=== PATIENT | male | born 1995 | race Caucasian/White ===

== ENCOUNTER 2022-05-28 22:48 | Emergency (ER) | payer OTHER ==
[2022-05-28 23:02] VITALS: PULSE 73; RESP 18; TEMP 97.9
[2022-05-28] MEDS ORDERED: DIPH,PERTUS(ACELL)TETVAC-LF 0.5 ML VIAL IM ONE (23:28)
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
--- NOTE | 2022-05-29 01:18 | XR ---
EXAMINATION TYPE: XR pelvis AP view DATE OF EXAM: 05/29/2022 COMPARISON: NONE HISTORY: Pain TECHNIQUE: Single view FINDINGS: Pelvic ring is intact. Proximal femurs and hip joints appear normal. Sacroiliac joints appe ar normal. IMPRESSION: Normal pelvis.
[2022-05-29 01:42] VITALS: BP 128/88
== END 2022-05-29 01:42 | disposition home or self-care (01) ==
LOC: EC 22:48
DX: S60.512A Abrasion of left hand, initial encounter (principal); T14.8XXA Other injury of unspecified body region, initial encounter; Z23 Encounter for immunization; V68.5XXA Driver of heavy transport vehicle injured in noncollision transport accident in traffic accident, initial encounter; Y92.410 Unspecified street and highway as the place of occurrence of the external cause
CPT/HCPCS: 70450; 71045; 72125; 72170; 90471; 90715; 99284

== ENCOUNTER 2023-07-26 05:48 | Observation (INO) | payer OTHER ==
[2023-07-26] MEDS ORDERED: SODIUM CHLORIDE 0.9% 1,000 ML IV STA (06:16)
[2023-07-26] MEDS ORDERED: KETOROLAC 15 MG/ML 1 ML VIAL IVP STA (06:16)
[2023-07-26] MEDS ORDERED: ONDANSETRON 4 MG/2 ML VIAL IVP STA ×2 (06:16→07:44)
--- NOTE | 2023-07-26 06:26 | ED ---
Abdominal Pain HPI - General Chief Complaint: Abdominal Pain Stated Complaint: Abdominal Pain, Nausea Time Seen by Provider: 07/26/23 06:13 Source: patient, RN notes reviewed Mode of arrival: ambulatory Limitations: no limitations - History of Present Illness Initial Comments: Patient is a 27-year-old male presenting to the ER with chief complaint of abd ominal pain. Patient states this started around 3 AM with generalized midline abdominal pain. Patient states he had one episode of vomiting but denies hematemesis. Patient describes the pain as a 10/10 sharp stabbing constant pain with associated nausea. He denies any abdominal surgeries. Patient denies any diarrhea or constipation, melena, shortness of breath, chest pain/palpitations. - Related Data Allergies Allergy/AdvReac Type Severity Reaction Status Date / Time No Known Allergies Allergy Verified 07/26/23 05:54 Review of Systems ROS Statement: Those systems with pertinent positive or pertinent negative responses have been documented in the HPI. ROS Other: All systems not noted in ROS Statement are negative. Past Medical History Past Medical History: No Reported History History of Any Multi-Drug Resistant Organisms: None Reported Past Surgical History: Orthopedic Surgery Past Psychological History: No Psychological Hx Reported Smoking Status: Never smoker Past Alcohol Use History: Occasional Past Drug Use History: None Reported General Exam Limitations: no limitations General appearance: alert, in no apparent distress, anxious Respiratory exam: Present: normal lung sounds bilaterally. Absent: respiratory distress, wheezes, rales, rhonchi, stridor Cardiovascular Exam: Present: regular rate, normal rhythm, normal heart sounds. Absent: systolic murmur, diastolic murmur, rubs, gallop, clicks GI/Abdominal exam: Present: soft, tenderness (generalized ), normal bowel sounds Neurological exam: Present: alert, oriented X3, CN II-XII intact Course Vital Signs 07/26/23 07/26/23 07/26/23 05:51 06:13 07:22 Temperature 98.2 F 98.1 F Pulse Rate 64 65 61 Respiratory 18 20 18 Rate Blood Pressure 122/79 132/86 124/79 O2 Sat by Pulse 100 100 99 Oximetry 07/26/23 09:26 Temperature 98 F Pulse Rate 64 Respiratory 16 Rate Blood Pressure 141/82 O2 Sat by Pulse 98 Oximetry Medical Decision Making - Medical Decision Making Was pt. sent in by a medical professional or institution (, PA, [employer]ER, urgent care, hospital, or senior care...) When possible be specific @ -No Did you speak to anyone other than the patient for history (EMS, parent, family, police, friend...)? What history was obtained from this source @ -No Did you review nursing and triage notes (agree or disagree)? Why? @ -I reviewed and agree with nursing and triage notes Were old charts reviewed (outside hosp., previous admission, EMS record, old EKG, old radiological studies, urgent care reports/EKG's, senior care records)? Report findings @ -No old charts were reviewed Differential Diagnosis (chest pain, altered mental status, abdominal pain women, abdominal pain men, vaginal bleeding, weakness, fever, dyspnea, syncope, h eadache, dizziness, GI bleed, back pain, seizure, CVA, palpatations, mental health, musculoskeletal)? @ -Differential Abdominal Pain Men: Appendicitis, cholecystitis, diverticulosis, ischemic bowel, pancreatitis, hepatitis, UTI, gastroenteritis, AAA, incarcerated hernia, bowel obstruction, constipation, inflammatory bowel, hepatitis, peptic ulcer disease, splenic infarction, perforated viscus, testicular torsion, this is not meant to be an all-inclusive EKG interpreted by me (3pts min.). @ -None X-rays interpreted by me (1pt min.). @ -None done CT interpreted by me (1pt min.). @ -CT abdomen and pelvis significant for early inflammation involving the appendix. Early acute appendicitis with trace pelvic free fluid. There is also an incidental 4.9 cm right pericardiac cyst U/S interpreted by me (1pt. min.). @ -None done What testing was considered but not performed or refused? (CT, X-rays, U/S, l abs)? Why? @ -None What meds were considered but not given or refused? Why? @ -None Did you discuss the management of the patient with other professionals (professionals i.e. , AICHA, [employer]ER, lab, RT, psych nurse, social psychologist, blueprint blocker, teacher, food safety officer, rn case mgr)? Give summary @ -[Yes, this case was discussed with Dr. Helton. He advised antibiotics, nothing by mouth, IV fluids and admission. Was smoking cessation discussed for >3mins.? @ -No Was critical care preformed (if so, how long)? @ -No Were there social determinants of health that impacted care today? How? (Homelessness, low income, unemployed, alcoholism, drug addiction, transportation, low edu. Level, literacy, decrease access to med. care, usp, rehab)? @ -No Was there de-escalation of care discussed even if they declined (Discuss DNR or withdrawal of care, Hospice)? DNR status @ -No What co-morbidities impacted this encounter? (DM, HTN, Smoking, COPD, CAD, Cancer, CVA, ARF, Chemo, Hep., AIDS, mental health diagnosis, sleep apnea, morbid obesity)? @ -None Was patient admitted / discharged? Hospital course, mention meds given and route, prescriptions, significant lab abnormalities, going to OR and other p ertinent info. @ -Admitted. Patient is a 27-year-old male presented to the ER with chief complaint of generalized abdominal pain. Exam is significant for generalized abdominal pain with no focal tenderness. Labs were significant for a white blood cell count of 15 with a left shift. UA was negative. CT abdomen and pelvis significant for early of lesion involving the appendix suggestive of acute appendicitis. There is trace pelvic free fluid. Patient received IV fluids, IV Toradol, IV Dilaudid, IV Zofran, IV Zosyn. Patient will be admitted with Dr. Helton consulted. Undiagnosed new problem with uncertain prognosis? @ -No Drug Therapy requiring intensive monitoring for toxicity (Heparin, Nitro, Insulin, Cardizem)? @ -No Were any procedures done? @ -No Diagnosis/symptom? @ -Acute appendicitis Acute, or Chronic, or Acute on Chronic? @ -Acute Uncomplicated (without systemic symptoms) or Complicated (systemic symptoms)? @ -Uncomplicated Side effects of treatment? @ -No Exacerbation, Progression, or Severe Exacerbation? @ -No Poses a threat to life or bodily function? How? (Chest pain, USA, IA, pneumonia, PE, COPD, DKA, ARF, appy, cholecystitis, CVA, Diverticulitis, Homicidal, Suicidal, threat to staff... and all critical care pts) @ -No - Lab Data Result diagrams: 07/26/23 06:23 07/26/23 06:23 Lab Results 07/26/23 07/26/23 07/26/23 Range/Units 06:23 06:23 06:23 WBC 15.0 H (3.8-10.6) k/uL RBC 4.52 (4.30-5.90) m/uL Hgb 14.1 (13.0-17.5) gm/dL Hct 41.6 (39.0-53.0) % MCV 92.0 (80.0-100.0) fL MCH 31.2 (25.0-35.0) pg MCHC 33.9 (31.0-37.0) g/dL RDW 12.5 (11.5-15.5) % Plt Count 302 (150-450) k/uL MPV 7.2 Neutrophils % 81 % Lymphocytes % 12 % Monocytes % 4 % Eosinophils % 1 % Basophils % 1 % Neutrophils # 12.2 H (1.3-7.7) k/uL Lymphocytes # 1.8 (1.0-4.8) k/uL Monocytes # 0.7 (0-1.0) k/uL Eosinophils # 0.1 (0-0.7) k/uL Basophils # 0.1 (0-0.2) k/uL Sodium 140 (137-145) mmol/L Potassium 4.0 (3.5-5.1) mmol/L Chloride 106 (98-107) mmol/L Carbon Dioxide 25 (22-30) mmol/L Anion Gap 9 mmol/L BUN 19 (9-20) mg/dL Creatinine 0.83 (0.66-1.25) mg/dL Est GFR (CKD-EPI)AfAm >90 (>60 ml/min/1.73 sqM) Est GFR (CKD-EPI)NonAf >90 (>60 ml/min/1.73 sqM) Glucose 126 H (74-99) mg/dL Plasma Lactic Acid Tee (0.7-2.0) mmol/L Calcium 9.0 (8.4-10.2) mg/dL Total Bilirubin 0.4 (0.2-1.3) mg/dL AST 25 (17-59) U/L ALT 31 (4-49) U/L Alkaline Phosphatase 65 (38-126) U/L Total Protein 6.9 (6.3-8.2) g/dL Albumin 3.9 (3.5-5.0) g/dL Amylase 55 (30-110) U/L Lipase 60 (23-300) U/L Urine Color Yellow Urine Appearance Clear (Clear) Urine pH 6.5 (5.0-8.0) Ur Specific Hurley 1.025 (1.001-1.035) Urine Protein Negative (Negative) Urine Glucose (UA) Negative (Negative) Urine Ketones Negative (Negative) Urine Blood Negative (Negative) Urine Nitrite Negative (Negative) Urine Bilirubin Negative (Negative) Urine Urobilinogen <2.0 (<2.0) mg/dL Ur Leukocyte Esterase Negative (Negative) 07/26/23 Range/Units 06:23 WBC (3.8-10.6) k/uL RBC (4.30-5.90) m/uL Hgb (13.0-17.5) gm/dL Hct (39.0-53.0) % MCV (80.0-100.0) fL MCH (25.0-35.0) pg MCHC (31.0-37.0) g/dL RDW (11.5-15.5) % Plt Count (150-450) k/uL MPV Neutrophils % % Lymphocytes % % Monocytes % % Eosinophils % % Basophils % % Neutrophils # (1.3-7.7) k/uL Lymphocytes # (1.0-4.8) k/uL Monocytes # (0-1.0) k/uL Eosinophils # (0-0.7) k/uL Basophils # (0-0.2) k/uL Sodium (137-145) mmol/L Potassium (3.5-5.1) mmol/L Chloride (98-107) mmol/L Carbon Dioxide (22-30) mmol/L Anion Gap mmol/L BUN (9-20) mg/dL Creatinine (0.66-1.25) mg/dL Est GFR (CKD-EPI)AfAm (>60 ml/min/1.73 sqM) Est GFR (CKD-EPI)NonAf (>60 ml/min/1.73 sqM) Glucose (74-99) mg/dL Plasma Lactic Acid Tee 0.8 (0.7-2.0) mmol/L Calcium (8.4-10.2) mg/dL Total Bilirubin (0.2-1.3) mg/dL AST (17-59) U/L ALT (4-49) U/L Alkaline Phosphatase (38-126) U/L Total Protein (6.3-8.2) g/dL Albumin (3.5-5.0) g/dL Amylase (30-110) U/L Lipase (23-300) U/L Urine Color Urine Appearance (Clear) Urine pH (5.0-8.0) Ur Specific Hurley (1.001-1.035) Urine Protein (Negative) Urine Glucose (UA) (Negative) Urine Ketones (Negative) Urine Blood (Negative) Urine Nitrite (Negative) Urine Bilirubin (Negative) Urine Urobilinogen (<2.0) mg/dL Ur Leukocyte Esterase (Negative) - Radiology Data Radiology results: report reviewed, image reviewed Disposition Clinical Impression: Acute appendicitis Disposition: ADMITTED IP TO THIS HOSP Condition: Stable Referrals: Mg Medina MD [Primary Care Provider] - 1-2 days Time of Disposition: 09:57
[2023-07-26 06:46] LABS: Basophils # (A) 0.1 k/uL (0-0.2); Basophils % (A) 1 %; Eosinophils # (A) 0.1 k/uL (0-0.7); Eosinophils % (A) 1 %; HCT 41.6 % (39.0-53.0); HGB 14.1 gm/dL (13.0-17.5); Lymphocytes # (A) 1.8 k/uL (1.0-4.8); Lymphocytes % (A) 12 %; MCH 31.2 pg (25.0-35.0); MCHC 33.9 g/dL (31.0-37.0); Mean Platelet Volume 7.2; Monocytes # (A) 0.7 k/uL (0-1.0); Monocytes % (A) 4 %; Neutrophils # (A) 12.2 k/uL (1.3-7.7); Neutrophils % (A) 81 %; Platelet Count 302 k/uL (150-450); RBC 4.52 m/uL (4.30-5.90); RDW 12.5 % (11.5-15.5)
[2023-07-26 07:02] LABS: ALT 31 U/L (4-49); AST 25 U/L (17-59); African American GFR (CKD) >90 (>60 ml/min/1.73 sqM); Albumin 3.9 g/dL (3.5-5.0); Alkaline Phosphatase 65 U/L (38-126); Amylase 55 U/L (30-110); Anion Gap 9 mmol/L; Blood Urea Nitrogen 19 mg/dL (9-20); Carbon Dioxide 25 mmol/L (22-30); Chloride 106 mmol/L (98-107); Glucose 126 mg/dL (74-99); Lipase 60 U/L (23-300); Non-African American GFR(CKD) >90 (>60 ml/min/1.73 sqM); Sodium 140 mmol/L (137-145); Total Bilirubin 0.4 mg/dL (0.2-1.3); Total Protein 6.9 g/dL (6.3-8.2)
[2023-07-26] MEDS ORDERED: HYDROmorphone 0.5 MG/0.5 ML SYRINGE IVP STA (07:44)
[2023-07-26 08:44] LABS: Appearance,Urine Clear (Clear); Bilirubin,Urine Negative (Negative); Blood,Urine Negative (Negative); Color,Urine Yellow; Glucose,Urine (UA) Negative (Negative); Ketones,Urine Negative (Negative); Leukocyte Esterase,Urine Negative (Negative); Nitrite,Urine Negative (Negative); PH, Urine 6.5 (5.0-8.0); Protein,Urine Negative (Negative); Specific Gravity,Urine 1.025 (1.001-1.035); Urobilinogen,Urine <2.0 mg/dL (<2.0)
--- NOTE | 2023-07-26 09:23 | CT ---
EXAMINATION TYPE: CT abdomen pelvis wo con DATE OF EXAM: 07/26/2023 COMPARISON: None HISTORY: 27-year-old male with generalized generalized pain and nausea CT DLP: 448.8 mGycm. Automated exposure control for dose reduction was used. TECHNIQUE: Contiguous axial scanning of the abdomen and pelvis without IV contrast. Coronal and sagit altagracia reconstructions performed. FINDINGS: LUNG BASES: Right pericardiac cyst incidentally noted measuring 4.9 x 2.7 cm. No significant abnormal ity is otherwise appreciated. LIVER/GB: No significant abnormality is appreciated. PANCREAS: No significant abnormality is seen. SPLEEN: No significant abnormality is seen. ADRENALS: No significant abnormality is seen. KIDNEYS: No significant abnormality is seen. BOWEL: There appears to be a tiny 3 mm appendicolith at the base of the appendix. The appendix is flu id-filled and mildly thickened up to 8 mm. The distal aspect of the appendix shows suggestion of mild fat stranding. No dilated small bowel. There is trace free fluid in the pelvis but no free air seen. Scattered bilateral stool. LYMPH NODES: No significant abnormality is seen. OTHER: No significant abnormality is seen. PELVIS: Prostate gland measures 3.7 cm wide. Pelvic phlebolith. Mild pelvic ascites. No pelvic adenop athy. BONES: No significant abnormality is seen. IMPRESSION: 1. Findings suspicious for early inflammation involving the appendix. Correlate for early acute appe ndicitis. Accompanying trace pelvic free fluid which is an abnormal finding in a male patient. 2. Incidental 4.9 cm right pericardiac cyst.
[2023-07-26] MEDS ORDERED: PIPERACILLIN-TAZOBACTAM 3.375 GM in SODIUM CHLORIDE 0.9% 100 ML IVPB STA (09:46)
[2023-07-26] MEDS ORDERED: ONDANSETRON 4 MG/2 ML VIAL IVP PRN ×2 (09:47→17:07)
[2023-07-26] MEDS ORDERED: NALOXONE 0.4 MG/ML 1 ML VIAL IV PRN ×2 (09:47→17:07)
[2023-07-26] MEDS: SODIUM CHLORIDE 0.9% 1,000 ML IV SCH (10:06)
[2023-07-26] MEDS: HYDROmorphone 0.5 MG/0.5 ML SYRINGE IVP PRN ×4 (10:54→23:49)
--- NOTE | 2023-07-26 11:58 | P.GSHP ---
History of Present Illness H&P Date: 07/26/23 CHIEF COMPLAINT: Right lower quadrant abdominal HISTORY OF PRESENT ILLNESS: This is a 27-year-old male who presented to the hospital with complaints of right lower quadrant abdominal pain that started at 3 AM this morning. Patient reports yesterday he just wasn't feeling well. He reports that he's been having nausea and vomiting. Last emesis was 4 AM. He does feel bloated. And discomfort across the lower abdomen but more specifically the right lower quadrant. He denies any prior abdominal surgeries. He has been having bowel movements. Initially utilized pain was due to constipation however after having bowel movement he had no relief pain. Computed tomography scan abdomen reports findings suspicious for early inflammation involving the appendix. Correlate for acute appendicitis. Accompanying trace pelvic free fluid which is abnormal finding in a male patient. Patient has been started on antibiotics. Denies any cardiac history. PAST MEDICAL HISTORY: Depression PAST SURGICAL HISTORY: Orthopedic surgery MEDICATIONS: See below ALLERGIES: See below SOCIAL HISTORY: No illicit drug use. REVIEW OF SYSTEMS: CONSTITUTIONAL: Denies fever or chills. HEENT: Denies blurred vision, vision changes, or eye pain. Denies hemoptysis CARDIOVASCULAR: Denies chest pain or pressure. RESPIRATORY: No shortness of breath. GASTROINTESTINAL: See HPI for pertinent findings HEMATOLOGIC: Denies bleeding disorders. GENITOURINARY: Denies any blood in urine or increased urinary frequency. SKIN: Denies pruitis. Denies rash. PHYSICAL EXAM: VITAL SIGNS: Reviewed GENERAL: Well-developed in no acute distress. ABDOMEN: Soft. Nondistended. Tenderness to palpation the right lower quadrant NEUROLOGIC: Alert and oriented. Cranial nerves II through XII grossly intact. LABORATORY DATA: WBC 15 Hgb 14.1 platelets 302 Sodium 140 potassium 4.0 creatinine 0.83 Lactic acid 0.8 LFTs normal Lipase 60 Urinalysis negative for infection IMAGING: Computed tomography scan abdomen and pelvis findings suspicious for early inflammation involving the appendix. Correlate for early acute appendicitis. Accompanying trace pelvic free fluid which is abnormal finding in a male patient. Incidental 4.9 cm right. Cardiac cyst. ASSESSMENT: 1. Early acute appendicitis. Right lower quadrant abdominal pain with CT scan findings suspicious for early inflammation involving the appendix PLAN: -Patient scheduled for laparoscopic appendectomy today with Dr. Helton -Keep patient nothing by mouth -Continue IV antibiotics -Continue IV fluids -Continue pain management [employer] note has been reviewed by physician. Signing provider agrees with the documented findings, assessment, and plan of care. Past Medical History Past Medical History: No Reported History History of Any Multi-Drug Resistant Organisms: None Reported Past Surgical History: Orthopedic Surgery Past Psychological History: No Psychological Hx Reported Smoking Status: Never smoker Past Alcohol Use History: Occasional Past Drug Use History: None Reported Medications and Allergies Home Medications Medication Instructions Recorded Confirmed Type FLUoxetine HCL [Sarafem] 20 mg PO DAILY 07/26/23 07/26/23 History Allergies Allergy/AdvReac Type Severity Reaction Status Date / Time No Known Allergies Allergy Verified 07/26/23 11:32 Surgical - Exam Vital Signs Temp Pulse Resp BP Pulse Ox 98.2 F 64 18 122/79 100 07/26/23 05:51 07/26/23 05:51 07/26/23 05:51 07/26/23 05:51 07/26/23 05:51 Results - Labs 07/26/23 06:23 07/26/23 06:23 Abnormal Lab Results - Last 24 Hours (Table) 07/26/23 07/26/23 Range/Units 06:23 06:23 WBC 15.0 H (3.8-10.6) k/uL Neutrophils # 12.2 H (1.3-7.7) k/uL Glucose 126 H (74-99) mg/dL Diabetes panel 07/26/23 Range/Units 06:23 Sodium 140 (137-145) mmol/L Potassium 4.0 (3.5-5.1) mmol/L Chloride 106 (98-107) mmol/L Carbon Dioxide 25 (22-30) mmol/L BUN 19 (9-20) mg/dL Creatinine 0.83 (0.66-1.25) mg/dL Glucose 126 H (74-99) mg/dL Calcium 9.0 (8.4-10.2) mg/dL AST 25 (17-59) U/L ALT 31 (4-49) U/L Alkaline Phosphatase 65 (38-126) U/L Total Protein 6.9 (6.3-8.2) g/dL Albumin 3.9 (3.5-5.0) g/dL Calcium panel 07/26/23 Range/Units 06:23 Calcium 9.0 (8.4-10.2) mg/dL Albumin 3.9 (3.5-5.0) g/dL Pituitary panel 07/26/23 Range/Units 06:23 Sodium 140 (137-145) mmol/L Potassium 4.0 (3.5-5.1) mmol/L Chloride 106 (98-107) mmol/L Carbon Dioxide 25 (22-30) mmol/L BUN 19 (9-20) mg/dL Creatinine 0.83 (0.66-1.25) mg/dL Glucose 126 H (74-99) mg/dL Calcium 9.0 (8.4-10.2) mg/dL Adrenal panel 07/26/23 Range/Units 06:23 Sodium 140 (137-145) mmol/L Potassium 4.0 (3.5-5.1) mmol/L Chloride 106 (98-107) mmol/L Carbon Dioxide 25 (22-30) mmol/L BUN 19 (9-20) mg/dL Creatinine 0.83 (0.66-1.25) mg/dL Glucose 126 H (74-99) mg/dL Calcium 9.0 (8.4-10.2) mg/dL Total Bilirubin 0.4 (0.2-1.3) mg/dL AST 25 (17-59) U/L ALT 31 (4-49) U/L Alkaline Phosphatase 65 (38-126) U/L Total Protein 6.9 (6.3-8.2) g/dL Albumin 3.9 (3.5-5.0) g/dL
[2023-07-26] MEDS ORDERED: LACTATED RINGERS 1,000 ML IV ONE ×2 (15:39→17:07)
[2023-07-26] MEDS ORDERED: HEPARIN SODIUM,PORCINE/PF 5,000 UNIT/0.5 ML SYRINGE SQ ONE (15:40)
[2023-07-26] MEDS ORDERED: ONDANSETRON 4 MG/2 ML VIAL IVP ONE (15:48)
[2023-07-26] MEDS ORDERED: PROPOFOL 10 MG/ML 20 ML VIAL IV ONE (16:26)
[2023-07-26] MEDS ORDERED: MIDAZOLAM 2 MG/2 ML VIAL ONE (16:26)
[2023-07-26] MEDS ORDERED: PHENYLEPHRINE-0.9% NACL SYG 1,000 MCG/10 ML SYRINGE ONE (16:26)
[2023-07-26] MEDS ORDERED: GLYCOPYRROLATE 0.2 MG/ML 2 ML VIAL ONE (16:26)
[2023-07-26] MEDS ORDERED: LIDOCAINE 1% INJ 10MG/ML (20 ML MDV) ONE (16:26)
[2023-07-26] MEDS ORDERED: ROCURONIUM 10 MG/ML (5 ML VIAL) IV ONE (16:26)
[2023-07-26] MEDS ORDERED: SUCCINYLCHOLINE CHLORIDE 200 MG/10 ML VIAL IV ONE (16:26)
[2023-07-26] MEDS ORDERED: KETOROLAC 15 MG/ML 1 ML VIAL ONE (16:26)
[2023-07-26] MEDS ORDERED: fentaNYL (PF) 50 MCG/ML 2 ML AMP ONE (16:26)
[2023-07-26] MEDS ORDERED: NEOSTIGMINE 1 MG/ML 10 ML VIAL ONE (16:26)
[2023-07-26] MEDS ORDERED: HEPARIN SODIUM,PORCINE 5,000 UNIT/ML 1 ML VIAL SQ ONE (16:29)
[2023-07-26] MEDS ORDERED: LIDOCAINE 1%-EPI 1:100,000 50 ML VIAL SQ ONE ×3 (16:42→16:43)
--- NOTE | 2023-07-26 17:06 | P.OP ---
Date of Procedure: 07/26/23 Preoperative Diagnosis: Acute appendicitis Postoperative Diagnosis: Acute appendicitis Procedure(s) Performed: Laparoscopic appendectomy Anesthesia: CHARIS Surgeon: Alexsander Helton Estimated Blood Loss (ml): 5 Pathology: other (Appendix) Condition: stable Disposition: PACU Description of Procedure: HarmThe patient's placed on the operating table in the supine position. The patient received general anesthesia. The abdomen was prepped and draped in the usual sterile fashion. The skin was anesthetized 1% local Xylocaine at the trocar sites. Using an 11 blade the skin was incised at the umbilicus. The umbilicus was grasped with a Speedwell clamp and then a Veress needle was placed into the peritoneal cavity. Position of the Veress needle was confirmed with positive drop test. After adequate insufflation a 5 mm trocar was placed into the peritoneal cavity. The abdomen was further insufflated. And then the laparoscope was placed in the peritoneal cavity. Next a 5 mm trocar was placed in the midline suprapubic position. And then a 10 mm trocar was placed in the midline epigastric position. The patient was rotated with the right side up and in Trendelenburg. The appendix was visualized. The appendix appeared to be inflamed. The appendix was grasped and then using the Harmonic scissors the mesoappendix was divided. A PDS Endoloop was then placed around the base of the appendix. And then the appendix was divided using Harmonic scissors. The appendix was placed into an Endo Catch and brought out through the 10 mm trocar site. The abdomen was irrigated. There is no bleeding seen. The trochars withdrawn. The skin was closed interrupted 3-0 Monocryl suture. Dermabond dressing was applied. Patient was sent to recovery room in stable condition.
[2023-07-26] MEDS ORDERED: HYDROmorphone 0.5 MG/0.5 ML SYRINGE IVP PRN (17:07)
[2023-07-26] MEDS ORDERED: HYDROmorphone 1 MG/ML 1 ML SYRINGE IVP PRN (17:07)
[2023-07-26] MEDS ORDERED: ACETAMINOPHEN TAB 325 MG TAB PO PRN (17:07)
[2023-07-26] MEDS: PIPERACILLIN-TAZOBACTAM 3.375 GM in SODIUM CHLORIDE 0.9% 100 ML IVPB SCH ×2 (18:52→23:28)
[2023-07-26] MEDS: KETOROLAC 15 MG/ML 1 ML VIAL IVP SCH ×2 (18:55→23:27)
[2023-07-27] MEDS: SODIUM CHLORIDE 0.9% 1,000 ML IV SCH ×2 (00:47→12:57)
--- NOTE | 2023-07-27 03:12 | P.CONS ---
History of Present Illness - Reason for Consult Consult date: 07/26/23 post op medical management - Chief Complaint abd pain - History of Present Illness 27-year-old male no significant past medical history Patient coming in with 1 day history of severe sudden onset abdominal pain describes it as lower abdominal mainly right lower quadrant sharp pain 10 out of 10 in severity associated with feeling nauseous and repeated vomiting knives any hematemesis denies any GI bleeding denies any melena denies any prior surgical history denies any trauma denies any fevers or chills he initially thought he might be having some constipation then he passed a bowel movement with no relief pain persisted and was getting worse feeling very nauseous decided come to the hospital for evaluation there is any urinary changes denies any fevers or chills denies any coughing upper respiratory infection chest pain or shortness of breath Evaluated in the ED including CAT scan found to have early acute appendicitis patient was taken today or later tolerated procedure well no observed immediate postop complications patient tolerated by mouth intake with clear liquids he has passed urine but no bowel movement yet he's not passing gas as he does not feel nauseous and throwing up no chest pain or trouble breathing no fevers or chills review of systems Pertinent positives as noted in HPI. All other systems were reviewed and are negative on exam Constitutional: No acute distress, conversant, pleasant Eyes: Anicteric sclerae, moist conjunctiva, Pupils equal round reactive to light ENMT: NC/AT Oropharynx clear, no erythema, or exudates Neck: Supple, no masses, or JVD No carotid bruits No thyromegaly Lungs: Clear to auscultation Clear to percussion Normal respiratory effort, no accessory muscle use Cardiovascular: Heart regular in rate and rhythm, No murmurs, gallops, or rubs No peripheral edema Abdominal: Soft, surgical wounds looks clean dry and intact Discomfort to deep palpation of the left lower quadrant, no guarding, rebound or rigidity Abdomen moving with respiration Normoactive bowel sounds No hepatomegaly, No splenomegaly No palpable mass No abdominal wall hernia noted Extremities: No digital cyanosis No clubbing Pedal pulses intact and symmetrical Radial pulses intact and symmetrical No calf tenderness Psychiatric: Alert and oriented to person, place and time Appropriate affect fair judgement Neuro Muscles Strength 5/5 in all 4 extremities Sensation to light touch grossly present throughout Cranial nerves II-XII grossly intact Lymphatics: no palpable cervical or supraclavicular lymph nodes Past Medical History Past Medical History: No Reported History History of Any Multi-Drug Resistant Organisms: None Reported Past Surgical History: Orthopedic Surgery Additional Past Surgical History / Comment(s): Left foot surgery. Past Psychological History: Depression Smoking Status: Never smoker Past Alcohol Use History: Occasional Past Drug Use History: None Reported - Past Family History Father Family Medical History: Diabetes Mellitus Medications and Allergies Home Medications Medication Instructions Recorded Confirmed Type FLUoxetine HCL [Sarafem] 20 mg PO DAILY 07/26/23 07/26/23 History Allergies Allergy/AdvReac Type Severity Reaction Status Date / Time No Known Allergies Allergy Verified 07/26/23 11:32 Physical Exam Vitals: Vital Signs Temp Pulse Pulse Resp BP BP Pulse Ox 07/27/23 01:25 98.4 F 89 18 105/51 95 07/26/23 20:43 101 H 114/69 97 07/26/23 20:13 85 111/70 97 07/26/23 19:43 87 102/66 95 07/26/23 19:13 79 16 109/70 97 07/26/23 18:00 68 16 120/72 93 L 07/26/23 17:45 71 16 115/56 94 L 07/26/23 17:30 70 16 104/61 94 L 07/26/23 17:15 97.5 F L 75 15 121/58 96 07/26/23 15:30 97.7 F 71 16 124/71 97 07/26/23 14:03 97.9 F 64 142/79 98 07/26/23 10:53 60 18 147/74 99 07/26/23 09:26 98 F 64 16 141/82 98 07/26/23 07:22 98.1 F 61 18 124/79 99 07/26/23 06:13 65 20 132/86 100 07/26/23 05:51 98.2 F 64 18 122/79 100 Intake and Output 07/26/23 07/26/23 07/27/23 14:59 22:59 06:59 Intake Total 750 Output Total 5 Balance 745 Intake: IV 750 Output: Estimated Blood Loss 5 Other: # Voids 0 Weight 72.575 kg Results CBC & Chem 7: 07/26/23 06:23 07/26/23 06:23 Labs: Abnormal Lab Results - Last 24 Hours (Table) 07/26/23 07/26/23 Range/Units 06:23 06:23 WBC 15.0 H (3.8-10.6) k/uL Neutrophils # 12.2 H (1.3-7.7) k/uL Glucose 126 H (74-99) mg/dL Assessment and Plan Assessment: Acute appendicitis post laparoscopic appendectomy postoperative day 0 Tolerated procedure well no immediate observed post operative complications IV fluid hydration Pain control with opiates Symptomatic control nausea vomiting with Zofran Patient continues to be on Zosyn IV fluid hydration normal saline 75 mL per hour Further management per primary surgical team Leukocytosis white count 15 secondary to above Hemoglobin 14.1 unremarkable Renal function unremarkable sodium 140 potassium 4 blood urea nitrogen 19 creatinine 0.8 Check CBC BMP in the morning DVT prophylaxis on Lovenox subcu daily Full code Thank you for this consultation
[2023-07-27] MEDS: KETOROLAC 15 MG/ML 1 ML VIAL IVP SCH ×3 (05:22→17:56)
[2023-07-27] MEDS: HYDROmorphone 0.5 MG/0.5 ML SYRINGE IVP PRN ×2 (05:22→20:58)
[2023-07-27] MEDS: PIPERACILLIN-TAZOBACTAM 3.375 GM in SODIUM CHLORIDE 0.9% 100 ML IVPB SCH ×2 (08:07→16:40)
[2023-07-27] MEDS: ENOXAPARIN 40 MG/0.4 ML SYRINGE SQ SCH (08:08)
[2023-07-27] MEDS: HYDROcodone/APAP 5-325MG 1 EACH TAB PO PRN ×2 (08:54→16:03)
[2023-07-27 09:11] LABS: BUN/Creat Ratio 11.55 Ratio (12.00-20.00); Blood Urea Nitrogen 12.7 mg/dL (9.0-27.0); Calcium 8.4 mg/dL (8.7-10.3); Carbon Dioxide 24.3 mmol/L (21.6-31.8); Chloride 105 mmol/L (96-109); Glucose 99 mg/dL (70-110); Potassium 3.8 mmol/L (3.5-5.5); Sodium 138 mmol/L (135-145)
[2023-07-27 09:15] LABS: Basophils # (A) 0.04 X 10*3/uL (0.00-0.10); Basophils % (A) 0.4 %; Eosinophils # (A) 0.03 X 10*3/uL (0.04-0.35); Eosinophils % (A) 0.3 %; HCT 37.8 % (39.6-50.0); HGB 12.9 d/dL (13.0-17.0); Lymphocytes # (A) 1.87 X 10*3/uL (0.90-5.00); Lymphocytes % (A) 16.4 %; MCH 30.3 pg (27.0-32.0); MCHC 34.1 d/dL (32.0-37.0); MCV 88.7 FL (80.0-97.0); Mean Platelet Volume 10.1 FL (9.5-12.2); Monocytes # (A) 0.71 X 10*3/uL (0.20-1.00); Monocytes % (A) 6.2 %; NRBC Per 100 WBC 0 X 10*3/uL (0.00-0.01); Neutrophils # (A) 8.71 X 10*3/uL (1.80-7.70); Neutrophils % (A) 76.3 %; Platelet Count 264 X 10*3/uL (140-440); RBC 4.26 X 10*6/uL (4.40-5.60); RDW 12.6 % (11.5-14.5); WBC 11.41 X 10*3/uL (4.50-10.00)
--- NOTE | 2023-07-27 13:15 | P.PN ---
Subjective Progress Note Date: 07/27/23 Hospital course: Patient is a very pleasant 27-year-old male with no reported past medical history who presented to the emergency department on 07/26/23 with a chief complaint of sudden onset abdominal pain accompanied by nausea and vomiting. He underwent full evaluation in the emergency department. Vital signs upon arrival blood pressure 122/79, heart rate 64, respiratory rate 18, temperature 98.2F, SpO2 100% on room air. CT abdomen and pelvis was completed revealing findings suspicious for early inflammation involving the appendix concerning for acute appendicitis accompanied by trace pelvic free fluid and an incidental 4.9 cm right. Pericardiac cyst. Patient was admitted to general surgery team and taken for laparoscopic appendectomy. We have been consulted for medical management throughout hospitalization. Physical exam: Vital signs reviewed and stable. General: Nontoxic, no distress and appears stated age. Derm: Skin warm and dry, normal coloration for ethnicity. Head: Atraumatic, normocephalic and symmetric. Eyes: EOMs intact, no lid lag, and anicteric sclera Mouth: no lip lesions, mucus membranes moist Cardiovascular: regular rate and rhythm with normal S1S2, no murmur, positive posterior tibial pulses bilaterally, and cap refill < 2 seconds. Lungs: Respirations even, regular, and unlabored on room air. Lungs CTA bilaterally, no rhonchi, no rales, no wheezing, and no accessory muscle usage. Abdominal: soft, nontender to palpation, no guarding, no appreciable organomegaly Ext: ROM intact. No gross muscle atrophy, no edema, no contractures Neuro: Speech clear, face symmetrical and CN II-XII grossly intact with no noted focal neuro deficits Psych: Alert and oriented to person, place, time, and situation. Appropriate and pleasant affect. Assessment and Plan of Care: Right pericardiac cyst -Incidental finding on CT abdomen and pelvis revealed a 4.9 cm right pericardiac cyst -Order placed for echocardiogram to further evaluate pericardiac cyst further. -Although likely a benign finding, consult was placed to cardiothoracic surgery secondary to size of pericardial cyst for further evaluation Postoperative blood loss anemia -Postoperative labs reviewed. Hemoglobin decreasing from 14.1 down to 12.9 which is an expected and stable finding. No need for transfusion or any other interventions at this time, no need for further testing as there is no active bleeding. Acute appendicitis, status post laparoscopic appendectomy -Patient is status post metastatic appendectomy, postop day 1. -Continuous symptomatic care and pain management, patient reports postoperative pain is currently controlled. -Pain management, diet, DVT prophylaxis, and wound care per primary admitting general surgery team. Data and imaging reviewed: Vital signs reviewed and stable with blood pressure 105/63, heart rate 69, respiratory rate 17, temp 98.3F, SpO2 of 97% on room air. Postoperative labs reviewed. CBC showing improvement of previous leukocytosis with WBC count decreasing from 15.0 down to 11.41 and revealing mild postoperative blood loss anemia with hemoglobin decreasing from 14.1 down to 12.9 which is an expected and stable finding. BMP was unremarkable. CT abdomen and pelvis was completed revealing findings suspicious for early inflammation involving the appendix concerning for acute appendicitis accompanied by trace pelvic free fluid and an incidental 4.9 cm right. Pericardiac cyst. Thank you for allowing us to participate in the care of this pleasant patient. Do not hesitate to contact us with questions. Someone can be reached from the [facility] hospitalist group all hours of the day at [phone] or via [employer]. Patient was seen independently by Nurse Pracitioner. This document was prepared using [employer] dictation software. Please allow for errors in supervisor, while rare they do occur. Erich Butler NP rendered care for this patient independently, reviewed the findings and plan as documented in the note above. I did not physically speak with or examine the patient on this date Objective - Vital Signs Vital signs: Vital Signs Temp 98.3 F 07/27/23 07:00 Pulse 69 07/27/23 07:00 Resp 17 07/27/23 07:00 BP 105/63 07/27/23 07:00 Pulse Ox 97 07/27/23 07:00 FiO2 Intake & Output 07/26/23 07/27/23 07/27/23 18:59 06:59 18:59 Intake Total 750 Output Total 5 Balance 745 Weight 72.575 kg Intake: IV 750 Output: Estimated Blood Loss 5 Other: # Voids 0 - Labs CBC & Chem 7: 07/28/23 06:51 07/27/23 04:59
--- NOTE | 2023-07-27 14:13 | P.PN ---
Subjective Progress Note Date: 07/27/23 CHIEF COMPLAINT: Acute appendicitis HISTORY OF PRESENT ILLNESS: Patient postop day #1 status post laparoscopic appendectomy. Patient reports his pain is controlled. He is tolerating diet. He is having flatus. Afebrile. WBC is down from 15-11.41 hemoglobin 12.9. Medicine service ordered ECHO for further evaluation of the incidental pericardiac cyst. PHYSICAL EXAM: VITAL SIGNS: Reviewed. GENERAL: Well-developed in no acute distress. ABDOMEN: Soft. Nondistended. Incision sites clean dry and intact NEUROLOGIC: Alert and oriented. Cranial nerves II through XII grossly intact. ASSESSMENT: 1. Acute appendicitis status post laparoscopic appendectomy PLAN: -Continue regular diet -Continue antibiotics -Continue pain management -Encouraged patient ambulates -Encouraged patient to use incentive spirometer -Repeat CBC in a.m. -Anticipate discharge tomorrow -DVT prophylaxis Lovenox Physician Switch Coupler note has been reviewed by physician. Signing provider agrees with the documented findings, assessment, and plan of care. Objective - Vital Signs Vital signs: Vital Signs Temp 98.3 F 07/27/23 07:00 Pulse 69 07/27/23 07:00 Resp 17 07/27/23 07:00 BP 105/63 07/27/23 07:00 Pulse Ox 97 07/27/23 07:00 FiO2 Intake & Output 07/26/23 07/27/23 07/27/23 18:59 06:59 18:59 Intake Total 750 Output Total 5 Balance 745 Weight 72.575 kg Intake: IV 750 Output: Estimated Blood Loss 5 Other: # Voids 0 - Labs CBC & Chem 7: 07/27/23 04:59 07/27/23 04:59 Labs: Abnormal Lab Results - Last 24 Hours (Table) 07/27/23 07/27/23 Range/Units 04:59 04:59 WBC 11.41 H (4.50-10.00) X 10*3/uL RBC 4.26 L (4.40-5.60) X 10*6/uL Hgb 12.9 L (13.0-17.0) d/dL Hct 37.8 L (39.6-50.0) % Neutrophils # 8.71 H (1.80-7.70) X 10*3/uL Eosinophils # 0.03 L (0.04-0.35) X 10*3/uL BUN/Creatinine Ratio 11.55 L (12.00-20.00) Ratio Calcium 8.4 L (8.7-10.3) mg/dL
[2023-07-28] MEDS: KETOROLAC 15 MG/ML 1 ML VIAL IVP SCH ×3 (00:21→12:22)
[2023-07-28] MEDS: PIPERACILLIN-TAZOBACTAM 3.375 GM in SODIUM CHLORIDE 0.9% 100 ML IVPB SCH ×2 (00:21→09:13)
[2023-07-28] MEDS: SODIUM CHLORIDE 0.9% 1,000 ML IV SCH (01:13)
[2023-07-28] MEDS: HYDROcodone/APAP 5-325MG 1 EACH TAB PO PRN ×2 (03:21→12:20)
--- NOTE | 2023-07-28 07:07 | CA ---
Transthoracic Echo Report Name: dK Canseco Age: 27 Gender: M : 1995 Exam Date: 07/27/2023 11:27 Exam Location: [facility] [facility] Ht (in): 71 Wt (lb): 159 Ordering Physician: Erich Butler Attending/Referring Phys: Medical Diagnostic Radiographer Maureen Tabor [facility] Procedure CPT: Indications: further eval right pericardiac cyst measuring 4.9 Cardiac Hx: Technical Quality: Fair Contrast 1: Total Dose (mL): Contrast 2: Total Dose (mL): MEASUREMENTS (Male / Female) Normal Values 2D ECHO LV Diastolic Diameter PLAX 4.7 cm 4.2 - 5.9 / 3.9 - 5.3 cm LV Systolic Diameter PLAX 3.0 cm IVS Diastolic Thickness 0.9 cm 0.6 - 1.0 / 0.6 - 0.9 cm LVPW Diastolic Thickness 1.0 cm 0.6 - 1.0 / 0.6 - 0.9 cm LV Relative Wall Thickness 0.4 Ascending Aorta Diameter 2.6 cm M-MODE Aortic Root Diameter MM 2.8 cm LA Systolic Diameter MM 3.6 cm LA Ao Ratio MM 1.3 AV Cusp Separation MM 2.4 cm DOPPLER AV Peak Velocity 107.6 cm/s AV Peak Gradient 4.6 mmHg AV Mean Velocity 72.1 cm/s AV Mean Gradient 2.4 mmHg AV Velocity Time Integral 21.3 cm LVOT Peak Velocity 95.2 cm/s LVOT Peak Gradient 3.6 mmHg LVOT Velocity Time Integral 19.8 cm Mitral E Point Velocity 79.3 cm/s Mitral A Point Velocity 54.5 cm/s Mitral E to A Ratio 1.5 MV Deceleration Time 187.5 ms LV E' Lateral Velocity 8.8 cm/s Mitral E to LV E' Lateral Ratio 9.0 LV E' Septal Velocity 13.9 cm/s Mitral E to LV E' Septal Ratio 5.7 TR Peak Velocity 203.9 cm/s TR Peak Gradient 16.6 mmHg Right Atrial Pressure 8.0 mmHg Pulmonary Artery Systolic Pressu 24.6 mmHg Right Ventricular Systolic Press 24.6 mmHg FINDINGS Left Ventricle Left ventricular wall thickness normal. Left ventricular cavity size normal. Normal left ventricular systolic function with no obvious regional wall motion abnormalities. Left ventricular ejection fraction is estimated at 55-60%. Right Ventricle Mild right ventricular dilatation. Right Atrium Normal right atrial size. Left Atrium Normal left atrial size. Mitral Valve Structurally normal mitral valve. Trace mitral regurgitation. Aortic Valve Trileaflet aortic valve. No aortic valve stenosis or regurgitation. Tricuspid Valve Structurally normal tricuspid valve. mild tricuspid regurgitation. Pulmonic Valve Structurally normal pulmonic valve. Trace pulmonic regurgitation. Pericardium No pericardial effusion. Aorta Normal size aortic root and proximal ascending aorta. CONCLUSIONS 1. Normal left ventricular size and systolic function 2. Mild tricuspid with trace mitral regurgitation. 3. No pericardial effusion Previewed by: Dr. Renan Callejas MD (Electronically Signed) Final Date: 28 July 2023 07:05
[2023-07-28 07:41] VITALS: BP 113/70; PULSE 69; TEMP 98.4
[2023-07-28] MEDS ORDERED: FLUoxetine HCL 20 MG CAP PO SCH (09:00)
[2023-07-28] MEDS: ENOXAPARIN 40 MG/0.4 ML SYRINGE SQ SCH (09:12)
[2023-07-28 10:19] VITALS: RESP 19
[2023-07-28 11:06] LABS: Basophils # (A) 0.04 X 10*3/uL (0.00-0.10); Basophils % (A) 0.5 %; Eosinophils # (A) 0.16 X 10*3/uL (0.04-0.35); Eosinophils % (A) 1.8 %; HCT 35.2 % (39.6-50.0); Lymphocytes # (A) 2.09 X 10*3/uL (0.90-5.00); Lymphocytes % (A) 23.6 %; MCH 30.3 pg (27.0-32.0); MCHC 34.1 d/dL (32.0-37.0); MCV 88.9 FL (80.0-97.0); Mean Platelet Volume 9.9 FL (9.5-12.2); Monocytes # (A) 0.82 X 10*3/uL (0.20-1.00); Monocytes % (A) 9.3 %; NRBC Per 100 WBC 0 X 10*3/uL (0.00-0.01); Neutrophils # (A) 5.71 X 10*3/uL (1.80-7.70); Neutrophils % (A) 64.5 %; Platelet Count 232 X 10*3/uL (140-440); RBC 3.96 X 10*6/uL (4.40-5.60); RDW 12.4 % (11.5-14.5); WBC 8.85 X 10*3/uL (4.50-10.00)
--- NOTE | 2023-07-28 11:12 | P.PN ---
Subjective Progress Note Date: 07/28/23 Hospital course: Patient is a very pleasant 27-year-old male with no reported past medical history who presented to the emergency department on 07/26/23 with a chief complaint of sudden onset abdominal pain accompanied by nausea and vomiting. He underwent full evaluation in the emergency department. Vital signs upon arrival blood pressure 122/79, heart rate 64, respiratory rate 18, temperature 98.2F, SpO2 100% on room air. CT abdomen and pelvis was completed revealing findings suspicious for early inflammation involving the appendix concerning for acute appendicitis accompanied by trace pelvic free fluid and an incidental 4.9 cm right. Pericardiac cyst. Patient was admitted to general surgery team and taken for laparoscopic appendectomy. We have been consulted for medical management throughout hospitalization. Physical exam: Vital signs reviewed and stable. General: Nontoxic, no distress and appears stated age. Derm: Skin warm and dry, normal coloration for ethnicity. Head: Atraumatic, normocephalic and symmetric. Eyes: EOMs intact, no lid lag, and anicteric sclera Mouth: no lip lesions, mucus membranes moist Cardiovascular: regular rate and rhythm with normal S1S2, no murmur, positive posterior tibial pulses bilaterally, and cap refill < 2 seconds. Lungs: Respirations even, regular, and unlabored on room air. Lungs CTA bilaterally, no rhonchi, no rales, no wheezing, and no accessory muscle usage. Abdominal: soft, nontender to palpation, no guarding, no appreciable organomegaly Ext: ROM intact. No gross muscle atrophy, no edema, no contractures Neuro: Speech clear, face symmetrical and CN II-XII grossly intact with no noted focal neuro deficits Psych: Alert and oriented to person, place, time, and situation. Appropriate and pleasant affect. Assessment and Plan of Care: Right pericardiac cyst -Incidental finding on CT abdomen and pelvis revealed a 4.9 cm right pericardiac cyst -Order placed for echocardiogram to further evaluate pericardiac cyst further. -This is a benign finding, and can be followed up by PCP Postoperative blood loss anemia -Postoperative labs reviewed. Hemoglobin decreasing from 14.1 down to 12.9 which is an expected and stable finding. No need for transfusion or any other interventions at this time, no need for further testing as there is no active bleeding. Acute appendicitis, status post laparoscopic appendectomy -Patient is status post metastatic appendectomy, postop day 1. -Continuous symptomatic care and pain management, patient reports postoperative pain is currently controlled. -Pain management, diet, DVT prophylaxis, and wound care per primary admitting general surgery team. Data and imaging reviewed: Vital signs reviewed and stable with blood pressure 105/63, heart rate 69, respiratory rate 17, temp 98.3F, SpO2 of 97% on room air. Postoperative labs reviewed. CBC showing improvement of previous leukocytosis with WBC count decreasing from 15.0 down to 11.41 and revealing mild postoperative blood loss anemia with hemoglobin decreasing from 14.1 down to 12.9 which is an expected and stable finding. BMP was unremarkable. CT abdomen and pelvis was completed revealing findings suspicious for early inflammation involving the appendix concerning for acute appendicitis accomp anied by trace pelvic free fluid and an incidental 4.9 cm right. Pericardiac cyst. Thank you for allowing us to participate in the care of this pleasant patient. Do not hesitate to contact us with questions. Someone can be reached from the [facility] hospitalist group all hours of the day at [phone] or via [employer]. -Patient is medically cleared for discharge, when approved by surgery to do so Objective - Vital Signs Vital signs: Vital Signs Temp 98.4 F 07/28/23 07:08 Pulse 69 07/28/23 10:04 Resp 19 07/28/23 10:04 BP 113/70 07/28/23 07:08 Pulse Ox 96 07/28/23 07:08 FiO2 Intake & Output 07/27/23 07/28/23 07/28/23 18:59 06:59 18:59 Intake Total 473 Balance 473 Intake: Oral 473 Other: Voiding Method Toilet # Voids 3 2 - Labs CBC & Chem 7: 07/28/23 06:51 07/27/23 04:59 Labs: Abnormal Lab Results - Last 24 Hours (Table) 07/28/23 Range/Units 06:51 RBC 3.96 L (4.40-5.60) X 10*6/uL Hgb 12.0 L (13.0-17.0) d/dL Hct 35.2 L (39.6-50.0) % Microbiology - Last 24 Hours (Table) 07/26/23 10:00 Blood Culture - Preliminary Blood 07/26/23 09:45 Blood Culture - Preliminary Blood
--- NOTE | 2023-07-28 11:36 | P.DS ---
Providers Date of admission: 07/26/23 10:57 Expected date of discharge: 07/28/23 Attending physician: Alexsander Helton Consults: 07/26/23 17:07 Consult Physician Routine Consulting Provider: Cj Wilkerson Consult Reason/Comments: Medical management Do you want consulting provider notified?: Yes Primary care physician: Mg Medina Hospital Course: Discharge diagnosis 1. Acute appendicitis status post laparoscopic appendectomy Hospital course This is a 27-year-old male who presented with right lower quadrant abdominal pain. Computed tomography scan abdomen reports findings suspicious for early inflammation involving the appendix. Correlate for acute appendicitis. Accompanying trace pelvic free fluid which is abnormal finding in a male patient. Patient is status post laparoscopic appendectomy. Patient's pain is controlled. He is tolerating diet. He is having flatus. He has been up and ambulating. He is afebrile. His white count has normalized. He is stable for discharge. Please refer to chart for any further details. Physician Senior Sales Associate note has been reviewed by physician. Signing provider agrees with the documented findings, assessment, and plan of care. Patient Condition at Discharge: Stable Plan - Discharge Summary Discharge Rx Participant: No New Discharge Prescriptions: New Ibuprofen [Motrin] 600 mg PO Q8HR PRN #30 tab PRN Reason: Pain HYDROcodone/APAP 5-325MG [[place] 5-325] 1 tab PO Q6HR PRN 3 Days #12 tab PRN Reason: Pain Continue FLUoxetine HCL [Sarafem] 20 mg PO DAILY Discharge Medication List FLUoxetine HCL [Sarafem] 20 mg PO DAILY 07/26/23 [History] HYDROcodone/APAP 5-325MG [[place] 5-325] 1 tab PO Q6HR PRN 3 Days #12 tab 07/28/23 [Rx] Ibuprofen [Motrin] 600 mg PO Q8HR PRN #30 tab 07/28/23 [Rx] Follow up Appointment(s)/Referral(s): Mg Medina MD [Primary Care Provider] - 1-2 days Alexsander Helton MD [STAFF PHYSICIAN] - 1 Week Activity/Diet/Wound Care/Special Instructions: No driving while taking [place] No lifting over 10 pounds Shower daily. No soaking or tub baths for 2 weeks Very light activity until you are reevaluated at your follow up appointment with your surgeon Discharge Disposition: HOME SELF-CARE
== END 2023-07-28 12:30 | disposition home or self-care (01) ==
LOC: EC 05:48 → 6NMEDSUR 10:57 → 4SSUR 17:29
PROVIDERS: ADMIT Surgery; ATTEND Surgery
DX: K35.80 Unspecified acute appendicitis (principal); D62 Acute posthemorrhagic anemia; I31.8 Other specified diseases of pericardium; F32.A Depression, unspecified; Z79.899 Other long term (current) drug therapy; Z98.890 Other specified postprocedural states; Z83.3 Family history of diabetes mellitus
CPT/HCPCS: 44970; 96372 ×2; 96376; 96361; 96374; 96375; 99285; 36415; 93306; 88304; 80053; 80048; 82150; 83605; 83690; 85025 ×3; 81003; 87040; 74176; G0378 ×4; J2543 ×3; J2250; J0330; J1644; J2710; J2405; J2001; J1650 ×2; J3010; J1885 ×3; J2704; J1170 ×2; J2371